=== PATIENT | male | born 1985 | race African-American/Black ===

== ENCOUNTER 2017-11-19 07:16 | Emergency (ER) | payer SELFPAY, OTHER ==
[2017-11-19] MEDS: cloNIDine HCL 0.1 MG TABLET PO (07:55)
[2017-11-19] MEDS: LISINOPRIL 10 MG TABLET PO (07:55)
== END 2017-11-19 09:05 | disposition home or self-care (01) ==
LOC: ER 07:16
DX: L03.114 Cellulitis of left upper limb (principal); I10 Essential (primary) hypertension
CPT/HCPCS: 99283

== ENCOUNTER 2018-05-31 20:04 | Emergency (ER) | payer SELFPAY ==
[~2018-05-31] VITALS: Ht 177.8 cm; Wt 124.7 kg
[~2018-05-31 20:04] MED LIST: CEPH-264 PO; LISI10TA2 PO; MUPI15CR TP; SULF1TAB24 PO
[2018-05-31 20:22] VITALS: BP 208/124
--- NOTE | 2018-05-31 20:32 | PHYS DOC ---
Past Medical History Past Medical History: Hypertension Past Surgical History: No Surgical History Alcohol Use: Occasionally Drug Use: None Adult General Chief Complaint Chief Complaint: FOREIGNBODY EAR HPI HPI Patient is a 33 year old male with history of hypertension who presents today complaining of a Q-tip cotton end stuck in his left ear, since this evening. Review of Systems Review of Systems Constitutional: Denies fever or chills [] HENT: Foreign body to the left ear. Denies nasal congestion or sore throat [] Musculoskeletal: Denies back pain or joint pain [] Integument: Denies rash or skin lesions [] Neurologic: Denies headache, focal weakness or sensory changes [] All other systems were reviewed and found to be within normal limits, except as documented in this note. Allergies Allergies Allergies Coded Allergies Type Severity Reaction Last Updated Verified No Known Drug Allergies 11/19/17 No Physical Exam Physical Exam Constitutional: Well developed, well nourished, no acute distress, non-toxic appearance. [] HENT: Normocephalic, atraumatic, bilateral external ears normal, oropharynx moist, no oral exudates, nose normal. [] Left ear canal noted for a white-appearing object suspicious of Q-tip cotton end Skin: Warm, dry, no erythema, no rash. [] Back: No tenderness, no CVA tenderness. [] Extremities: No tenderness, no cyanosis, no clubbing, ROM intact, no edema. [] Neurologic: Alert and oriented X 3, normal motor function, normal sensory function, no focal deficits noted. [] Psychologic: Affect normal, judgement normal, mood normal. [] Current Patient Data Vital Signs Vital Signs Date Time Temp Pulse Resp B/P (MAP) Pulse Ox O2 Delivery O2 Flow Rate FiO2 05/31/18 20:22 98.0 89 16 208/124 (152) 96 Room Air 98.0 EKG EKG [] Radiology/Procedures Radiology/Procedures [] Course & Med Decision Making Course & Med Decision Making Pertinent Labs and Imaging studies reviewed. (See chart for details) This is a 33-year-old male patient presenting to the ED today complaining of a Q -tip cotton end stuck in the left ear. Forceps were used to remove the cotton successfully. Patient was discharged with instructions to avoid using Q-tips to clean his ears. Blood pressure was elevated 2018/124. History of hypertension. He states he took his blood pressure medicines this morning he has no cardiac or neurological complaints. We will recheck his blood pressure prior to discharge. Instructed to follow-up with his own doctor on Sunday next week. Katie Disclaimer Katie Disclaimer This electronic medical record was generated, in whole or in part, using a voice recognition dictation system. Departure Departure Impression: Primary Impression: Foreign body of ear, left Additional Impression: Hypertension Disposition: HOME, SELF-CARE Condition: STABLE Referrals: NO PCP (PCP) Follow-up with your doctor in the course of next week Patient Instructions: Ear Foreign Body, [id number], Hypertension Additional Instructions: We removed a Q-tip end from your left ear canal. Please avoid putting anything smaller than your fingers in the ears. Your blood pressure was also high, ensure you are taking your medications and follow-up with your own doctor in the course of next week. Problem Qualifiers Primary Impression: Foreign body of ear, left Encounter type: initial encounter Qualified Codes: T16.2XXA - Foreign body in left ear, initial encounter Additional Impression: Hypertension Hypertension type: unspecified Qualified Codes: I10 - Essential (primary) hypertension JOHNNY MANUEL COSMETIC SURGEON May 31, 2018 20:32
== END 2018-05-31 20:36 | disposition home or self-care (01) ==
LOC: ER 20:04
DX: T16.2XXA Foreign body in left ear, initial encounter (principal); I10 Essential (primary) hypertension; X58.XXXA Exposure to other specified factors, initial encounter; Y93.89 Activity, other specified; Y92.89 Other specified places as the place of occurrence of the external cause; Y99.8 Other external cause status
CPT/HCPCS: 69200; 99284

== ENCOUNTER 2018-10-21 19:35 | Emergency (ER) | payer SELFPAY ==
[~2018-10-21] VITALS: Ht 177.8 cm; Wt 136.1 kg
[2018-10-21 19:40] VITALS: BP 209/139
--- NOTE | 2018-10-21 21:15 | PHYS DOC ---
Past Medical History Past Medical History: Hypertension Past Surgical History: No Surgical History Additional Information: non smoker Alcohol Use: Occasionally Drug Use: None Adult General Chief Complaint Chief Complaint: UPPER EXTREMITY PAIN HPI HPI Patient is a 33-year-old male who presents to the right shoulder pain does last for several weeks. He also states his right elbow started hurting today. He is tried ibuprofen 200 mg tablets this morning he states that is not helping. He rates his pain a 7 out of 10 states that it throbs and aches when he lifts his right shoulder. Review of Systems Review of Systems Constitutional: Denies fever or chills [] Eyes: Denies change in visual acuity, redness, or eye pain [] HENT: Denies nasal congestion or sore throat [] Respiratory: Denies cough or shortness of breath [] Cardiovascular: No additional information not addressed in HPI [] GI: Denies abdominal pain, nausea, vomiting, bloody stools or diarrhea [] : Denies dysuria or hematuria [] Musculoskeletal: Denies back pain but reports R shoulder and R elbow pain. Integument: Denies rash or skin lesions [] Neurologic: Denies headache, focal weakness or sensory changes [] Endocrine: Denies polyuria or polydipsia [] Complete System were reviewed and found to be within normal limits, except as documented in this note. Current Medications Current Medications Current Medications Medications (Trade) Dose Ordered Sig/Ruby Start Time Stop Time Status Last Admin Dose Admin Ketorolac Tromethamine (Toradol 30mg Vial) 30 mg 1X ONCE 10/21/18 21:45 10/21/18 21:46 DC 10/21/18 21:23 30 MG Allergies Allergies Allergies Coded Allergies Type Severity Reaction Last Updated Verified No Known Drug Allergies 11/19/17 No Physical Exam Physical Exam Constitutional: Well developed, well nourished, no acute distress, non-toxic appearance. [] HENT: Normocephalic, atraumatic, bilateral external ears normal, oropharynx moist, no oral exudates, nose normal. [] Eyes: PERRLA, EOMI, conjunctiva normal, no discharge. [] Neck: Normal range of motion, no tenderness, supple, no stridor. [] Cardiovascular:Heart rate regular rhythm, no murmur [] Lungs & Thorax: Bilateral breath sounds clear to auscultation [] Abdomen: Bowel sounds normal, soft, no tenderness, no masses, no pulsatile mas ses. [] Skin: Warm, dry, no erythema, no rash. [] Back: No tenderness, no CVA tenderness. [] Extremities: Tenderness R elbow, no cyanosis, no clubbing, ROM reduced R shoulder, no edema. [] Neurologic: Alert and oriented X 3, normal motor function, normal sensory function, no focal deficits noted. [] Psychologic: Affect normal, judgement normal, mood normal. [] Current Patient Data Vital Signs Vital Signs Date Time Temp Pulse Resp B/P (MAP) Pulse Ox O2 Delivery O2 Flow Rate FiO2 10/21/18 19:40 98.6 85 20 209/139 (162) 96 Room Air 98.6 EKG EKG [] Radiology/Procedures Radiology/Procedures Preliminary reads by Dr. Hawthorne XRAY of SHOULDER AND ELBOW: No acute fracture or dislocation.[] Course & Med Decision Making Course & Med Decision Making Pertinent Labs and Imaging studies reviewed. (See chart for details) Discussed with patient that I will order x-rays and Toradol. Patient is a greeable. XRAYS are negative. Will discharge patient home to follow up with orthopedics. Dragon Disclaimer Dragon Disclaimer This electronic medical record was generated, in whole or in part, using a voice recognition dictation system. Departure Departure Impression: Primary Impression: Shoulder pain, acute Additional Impression: Elbow pain, right Disposition: 01 HOME, SELF-CARE Condition: STABLE Referrals: NO PCP (PCP) LAVONNE DIXON II, MD Patient Instructions: Shoulder Pain, [id number] Additional Instructions: Follow up with orthopedics as needed. Use ibuprofen as needed for pain. Follow label instructions. Problem Qualifiers Primary Impression: Shoulder pain, acute Laterality: right Qualified Codes: M25.511 - Pain in right shoulder NARENDRA JAY MANAGER TREASURY October 21, 2018 21:15
--- NOTE | 2018-10-21 21:44 | RAD ---
EXAM: Right shoulder, 3 views; right elbow, 3 views. HISTORY: Pain. COMPARISON: None. FINDINGS: Right shoulder: 3 views of the right shoulder obtained. There is no fracture, dislocation or subluxation. Right elbow: 3 views of the right elbow are obtained. There is no fracture, dislocation or subluxation. There is no joint effusion. There is slight enthesopathy at the triceps insertion. IMPRESSION: No acute osseous finding. Electronically signed by: Gale Esparza MD (10/21/2018 9:41 PM) [facility]
[2018-10-21] MEDS ORDERED: KETOROLAC 30 MG/ML VIAL. IM ONE (21:45)
--- NOTE | 2018-10-23 08:54 | RAD ---
EXAM: Right shoulder, 3 views; right elbow, 3 views. HISTORY: Pain. COMPARISON: None. FINDINGS: Right shoulder: 3 views of the right shoulder obtained. There is no fracture, dislocation or subluxation. Right elbow: 3 views of the right elbow are obtained. There is no fracture, dislocation or subluxation. There is no joint effusion. There is slight enthesopathy at the triceps insertion. IMPRESSION: No acute osseous finding. Electronically signed by: Gale Esparza MD (10/21/2018 9:41 PM) [facility] DICTATED and SIGNED BY: GALE ESPARZA MD DATE: 10/21/18 2141 MTDD
== END 2018-10-21 23:20 | disposition home or self-care (01) ==
LOC: ER 19:35
DX: M25.511 Pain in right shoulder (principal); M25.521 Pain in right elbow; I10 Essential (primary) hypertension
CPT/HCPCS: 73030; 73080; 96372; 99284; J1885

== ENCOUNTER 2018-10-31 09:47 | Emergency (ER) | payer SELFPAY ==
[~2018-10-31] VITALS: Ht 177.8 cm; Wt 136.1 kg
[2018-10-31] MEDS ORDERED: cloNIDine HCL 0.1 MG TABLET PO ONE (11:00)
--- NOTE | 2018-10-31 11:08 | PHYS DOC ---
Past Medical History Past Medical History: Hypertension (JOHNNY MANUEL APRN) Past Surgical History: No Surgical History (JOHNNY MANUEL APRN) Alcohol Use: Occasionally Drug Use: None (JOHNNY MANUEL APRN) Adult General Chief Complaint Chief Complaint: SORE THROAT HPI HPI Patient is a 33 year old male with history of hypertension who presents to the ED today complaining of a sore throat for 2 days. Denies any fever coughing or congestion. (JOHNNY MANUEL APRN) Review of Systems Review of Systems Constitutional: Denies fever or chills [] Eyes: Denies change in visual acuity, redness, or eye pain [] HENT: Reports sore throat. Denies nasal congestion Respiratory: Denies cough or shortness of breath [] Cardiovascular: No additional information not addressed in HPI [] GI: Denies abdominal pain, nausea, vomiting, bloody stools or diarrhea [] : Denies dysuria or hematuria [] Musculoskeletal: Denies back pain or joint pain [] Integument: Denies rash or skin lesions [] Neurologic: Denies headache, focal weakness or sensory changes [] All other systems were reviewed and found to be within normal limits, except as documented in this note. (JOHNNY MANUEL APRN) Current Medications Current Medications Current Medications Medications (Trade) Dose Ordered Sig/Ruby Start Time Stop Time Status Last Admin Dose Admin Clonidine HCl (Catapres) 0.2 mg 1X ONCE 10/31/18 11:00 10/31/18 11:01 DC 10/31/18 10:45 0.2 MG (NARENDRA UGALDE DO) Allergies Allergies Allergies Coded Allergies Type Severity Reaction Last Updated Verified No Known Drug Allergies 11/19/17 No (NARENDRA UGALDE DO) Physical Exam Physical Exam Constitutional: Overweight patient. Well developed, well nourished, no acute distress, non-toxic appearance. [] HENT: Normocephalic, atraumatic, bilateral external ears normal, oropharynx moist, no oral exudates, nose normal. [] Eyes: PERRLA, EOMI, conjunctiva normal, no discharge. [] Neck: Normal range of motion, no tenderness, supple, no stridor. [] Cardiovascular:Heart rate regular rhythm, no murmur [] Lungs & Thorax: Bilateral breath sounds clear to auscultation [] Abdomen: Bowel sounds normal, soft, no tenderness, no masses, no pulsatile masses. [] Skin: Warm, dry, no erythema, no rash. [] Back: No tenderness, no CVA tenderness. [] Extremities: No tenderness, no cyanosis, no clubbing, ROM intact, no edema. [] Neurologic: Alert and oriented X 3, normal motor function, normal sensory func tion, no focal deficits noted. [] Psychologic: Affect normal, judgement normal, mood normal. [] (JOHNNY MANUEL APRN) Current Patient Data Vital Signs Vital Signs Date Time Temp Pulse Resp B/P (MAP) Pulse Ox O2 Delivery O2 Flow Rate FiO2 10/31/18 12:06 92 16 219/127 (157) 95 Room Air 10/31/18 09:50 98.3 98.3 (NARENDRA UGALDE DO) Lab Values Laboratory Tests Test 10/31/18 10:00 Group A Streptococcus Rapid Negative (NEGATIVE) (NARENDRA UGALDE DO) EKG EKG [] (JOHNNY MANUEL APRN) Radiology/Procedures Radiology/Procedures [] (JOHNNY MANUEL APRN) Course & Med Decision Making Course & Med Decision Making Pertinent Labs and Imaging studies reviewed. (See chart for details) This is a 33-year-old male patient presented to the ED today with sore throat for 2 days. Negative rapid strep. Blood pressure 226/145 with heart rate of 89. Has history of hypertension. He states he took his metoprolol this morning though he seemed not sure because he mentioned his metoprolol is 600 mg. He was given clonidine in the ED. We will recheck his blood pressure. Blood pressure right now to 208/132, patient has no cardiac or neurological symptoms. He states his blood pressure standing to be high when he comes to the hospital though this numbers were too high. We talked about admission versus discharge. He states he has a PCP and can follow-up as an outpatient. He states he will make sure he takes his medicines. (JOHNNY MANUEL APRN) Dragon Disclaimer Dragon Disclaimer This electronic medical record was generated, in whole or in part, using a voice recognition dictation system. (JOHNNY MANUEL APRN) Departure Departure Impression: Primary Impression: Accelerated hypertension Additional Impression: Acute viral pharyngitis Disposition: HOME, SELF-CARE Condition: STABLE Referrals: NO PCP (PCP) ASMITA MOYA MD follow up as soon as you can Patient Instructions: Hypertension, Viral Pharyngitis Additional Instructions: Please ensure you are taking your blood pressure medications. Your strep test is negative. Use saltwater gargles as needed for sore throat. We also gave you medications to help with your sore throat symptoms, take them as prescribed. You can also take Tylenol/Motrin as needed. Scripts Prednisone (PREDNISONE) 50 Mg Tablet 1 TAB PO DAILY, #5 TAB Prov: JOHNNY MANUEL APRN 10/31/18 Attending Signature Attending Signature I have reviewed the PA/CUSTOM HARVESTER's note and plan of care. I was available for consultation as needed during the patient's visit in the emergency department. I agree with the clinical impression, plan, and disposition. (NARENDRA UGALDE DO) Problem Qualifiers JOHNNY MANUEL APRN October 31, 2018 11:08 NARENDRA UGALDE DO November 01, 2018 13:09
[2018-10-31] MEDS ORDERED: PRED50TA PO (11:54)
[2018-10-31 12:06] VITALS: BP 219/127
== END 2018-10-31 12:06 | disposition home or self-care (01) ==
LOC: ER 09:47
DX: J02.8 Acute pharyngitis due to other specified organisms (principal); B97.89 Other viral agents as the cause of diseases classified elsewhere; I10 Essential (primary) hypertension; E66.3 Overweight; Z68.41 Body mass index [BMI] 40.0-44.9, adult
CPT/HCPCS: 87070; 87880; 99283

== ENCOUNTER 2020-07-26 13:33 | Inpatient (IN) | payer BC ==
[~2020-07-26] VITALS: Ht 177.8 cm; Wt 140.3 kg
[~2020-07-26 13:33] MED LIST changes: +LISI10TA16 PO; -LISI10TA2 PO; +PRED50TA PO
--- NOTE | 2020-07-26 13:41 | PHYS DOC ---
Past Medical History Past Medical History: Hypertension Past Surgical History: No Surgical History Smoking Status: Never Smoker Alcohol Use: Occasionally Drug Use: None General Adult EDM: Chief Complaint: HYPERGLYCEMIA HPI: HPI: Patient is a 35 year old male with history of diabetic, on Metformin, presented with Dr. Sierra last week due to increased thirst and generalized weakness. Patient was found to be extremely hyperglycemic with acute renal failure. Patient was advised to be admitted to hospital for IV fluid and IV insulin however he declined. Patient was put on insulin at home over the weekend but he continued to feel weak, he checked his blood sugar and it was really high, so he called his doctor who told him to come to ER for admission. Patient denies any abdominal pain no nausea vomiting, no chest pain, no cough or fever. Review of Systems: Review of Systems: Constitutional: Denies fever or chills. Positive for generalized weakness. Eyes: Denies change in visual acuity. [] HENT: Denies nasal congestion or sore throat. [] Respiratory: Denies cough or shortness of breath. [] Cardiovascular: Denies chest pain or edema. [] GI: Denies abdominal pain, nausea, vomiting, bloody stools or diarrhea. [] : Denies dysuria. [] Musculoskeletal: Denies back pain or joint pain. [] Integument: Denies rash. [] Neurologic: Denies headache, focal weakness or sensory changes. [] Endocrine: Denies polyuria or polydipsia. [] Lymphatic: Denies swollen glands. [] Psychiatric: Denies depression or anxiety. [] Heart Score: Risk Factors: Risk Factors: DM, Current or recent (<one month) smoker, HTN, HLP, family history of CAD, obesity. Risk Scores: Score 0 - 3: 2.5% MACE over next 6 weeks - Discharge Home Score 4 - 6: 20.3% MACE over next 6 weeks - Admit for Clinical Observation Score 7 - 10: 72.7% MACE over next 6 weeks - Early Invasive Strategies Current Medications: Current Medications Medications (Trade) Dose Ordered Sig/Ruby Start Time Stop Time Status Last Admin Dose Admin Sodium Chloride 1,000 ml @ 1,000 mls/hr 1X ONCE 07/26/20 13:45 07/26/20 14:44 UNV Allergies: Allergies: Allergies Coded Allergies Type Severity Reaction Last Updated Verified No Known Drug Allergies 11/19/17 No Physical Exam: PE: Constitutional: Well developed, well nourished, no acute distress, non-toxic appearance. [] HENT: Normocephalic, atraumatic, bilateral external ears normal, oropharynx mo ist, no oral exudates, nose normal. [] Eyes: PERRLA, EOMI, conjunctiva normal, no discharge. [] Neck: Normal range of motion, no tenderness, supple, no stridor. [] Cardiovascular:Heart rate regular rhythm, no murmur [] Lungs & Thorax: Bilateral breath sounds clear to auscultation [] Abdomen: Bowel sounds normal, soft, no tenderness, no masses, no pulsatile masses. [] Skin: Warm, dry, no erythema, no rash. [] Back: No tenderness, no CVA tenderness. [] Extremities: No tenderness, no cyanosis, no clubbing, ROM intact, no edema. [] Neurologic: Alert and oriented X 3, normal motor function, normal sensory function, no focal deficits noted. [] Psychologic: Affect normal, judgement normal, mood normal. [] Current Patient Data: Labs: Laboratory Tests Test 07/26/20 13:48 07/26/20 14:15 07/26/20 14:25 Urine Collection Type Unknown Urine Color Yellow Urine Clarity Clear Urine pH 5.5 Urine Specific [place] >=1.030 Urine Protein Negative mg/dL Urine Glucose (UA) >=1000 mg/dL Urine Ketones (Stick) Negative mg/dL Urine Blood Negative Urine Nitrite Negative Urine Bilirubin Negative Urine Urobilinogen Dipstick 0.2 mg/dL Urine Leukocyte Esterase Negative Urine RBC 0 /HPF Urine WBC 0 /HPF Urine Squamous Epithelial Cells Occ /LPF Urine Bacteria 0 /HPF White Blood Count 10.4 x10^3/uL Red Blood Count 5.33 x10^6/uL Hemoglobin 14.9 g/dL Hematocrit 45.7 % Mean Corpuscular Volume 86 fL Mean Corpuscular Hemoglobin 28 pg Mean Corpuscular Hemoglobin Concent 33 g/dL Red Cell Distribution Width 13.4 % Platelet Count 249 x10^3/uL Neutrophils (%) (Auto) 73 % Lymphocytes (%) (Auto) 18 % Monocytes (%) (Auto) 7 % Eosinophils (%) (Auto) 1 % Basophils (%) (Auto) 1 % Neutrophils # (Auto) 7.6 x10^3/uL Lymphocytes # (Auto) 1.8 x10^3/uL Monocytes # (Auto) 0.8 x10^3/uL Eosinophils # (Auto) 0.1 x10^3/uL Basophils # (Auto) 0.1 x10^3/uL Sodium Level 127 mmol/L Potassium Level 4.5 mmol/L Chloride Level 92 mmol/L Carbon Dioxide Level 29 mmol/L Anion Gap 6 Blood Urea Nitrogen 34 mg/dL Creatinine 2.4 mg/dL Estimated GFR (Cockcroft-Gault) 37.5 BUN/Creatinine Ratio 14 Glucose Level 904 mg/dL Calcium Level 9.3 mg/dL Magnesium Level 2.9 mg/dL Total Bilirubin 0.5 mg/dL Aspartate Amino Transf (AST/SGOT) 14 U/L Alanine Aminotransferase (ALT/SGPT) 37 U/L Alkaline Phosphatase 91 U/L Total Protein 8.1 g/dL Albumin 3.9 g/dL Albumin/Globulin Ratio 0.9 Acetone Level Neg O2 Saturation 92 % Arterial Blood pH 7.39 Arterial Blood pCO2 at Patient Temp 48 mmHg Arterial Blood pO2 at Patient Temp 65 mmHg Arterial Blood HCO3 28 mmol/L Arterial Blood Base Excess 2 mmol/L FiO2 21 Current Medications Medications (Trade) Dose Ordered Sig/Ruby Route PRN Reason Start Time Stop Time Status Last Admin Dose Admin Sodium Chloride 1,000 ml @ 1,000 mls/hr 1X ONCE IV 07/26/20 13:45 07/26/20 14:44 DC 07/26/20 14:16 Insulin Human Regular (HumuLIN R VIAL) 10 unit 1X ONCE IV 07/26/20 15:15 07/26/20 15:16 DC Sodium Chloride 1,000 ml @ 100 mls/hr Q10H IV 07/26/20 15:15 07/27/20 15:14 Insulin Human Regular 100 unit/ Sodium Chloride 101 ml @ 0 mls/hr CONT PRN IV SEE I/O RECORD 07/26/20 15:15 EKG: EKG: [] Radiology/Procedures: Radiology/Procedures: [] Course & Med Decision Making: Course & Med Decision Making Pertinent Labs and Imaging studies reviewed. (See chart for details) Patient is a 35-year-old male with history of diabetic, presented with hyperglycemia and acute renal failure. Patient will need to be admitted to hospital for IV fluid and IV insulin. Discussed with Dr. Itzel Castellanos who agrees admit the patient. Patient is not in DKA. Dragon Disclaimer: Katie Disclaimer: This electronic medical record was generated, in whole or in part, using a voice recognition dictation system. Departure Departure Impression: Primary Impression: Hyperglycemia Additional Impression: Acute renal failure Disposition: ADMITTED INPT THIS HOSP Admitting Physician: Vinay Castellanos Condition: STABLE Referrals: NO PCP (PCP) NEO ROCHA DO Jul 26, 2020 13:41
[2020-07-26] MEDS ORDERED: IV NORMAL SALINE 1000ML BAG 1,000 ML IV ONE (13:45)
[2020-07-26 14:02] LABS: BILIRUBIN,URINE NEGATIVE (NEG); CLARITY,URINE CLEAR; COLOR,URINE YELLOW; NITRITE,URINE NEGATIVE (NEG); PH,URINE 5.5 (<5.0-8.0); PROTEIN,URINE NEGATIVE (NEG-TRACE); UROBILINOGEN,URINE 0.2 mg/dL (0.2 mg/dL)
[2020-07-26 14:19] LABS: BACTERIA,URINE 0 /HPF (0-FEW); RBC,URINE 0 /HPF (0-2); WBC,URINE 0 /HPF (0-4)
[2020-07-26 14:24] LABS: BASO # 0.1 x10^3/uL (0.0-0.2); BASO % 1 % (0-3); EOS # 0.1 x10^3/uL (0.0-0.7); EOS % 1 % (0-3); HEMATOCRIT 45.7 % (39.0-53.0); HEMOGLOBIN 14.9 g/dL (13.0-17.5); LYMPH # 1.8 x10^3/uL (1.0-4.8); LYMPH % 18 % (24-48); MEAN CORPUSCULAR HEMOGLOBIN 28 pg (25-35); MEAN CORPUSCULAR HGB CONC 33 g/dL (31-37); MEAN CORPUSCULAR VOLUME 86 fL (79-100); MONO # 0.8 x10^3/uL (0.0-1.1); MONO % 7 % (0-9); NEUT # 7.6 x10^3/uL (1.8-7.7); NEUT % 73 % (31-73); PLATELET COUNT 249 x10^3/uL (140-400); RED BLOOD COUNT 5.33 x10^6/uL (4.30-5.70); RED CELL DISTRIBUTION WIDTH 13.4 % (11.5-14.5); WHITE BLOOD COUNT 10.4 x10^3/uL (4.0-11.0)
[2020-07-26 14:38] LABS: BASE EXCESS ABG 2 mmol/L (-3-3); HCO3 ABG 28 mmol/L (21-28); PCO2 ABG 48 mmHg (35-46); PO2 ABG 65 mmHg (85-108); SAT O2 ABG 92 % (92-99)
[2020-07-26 14:40] LABS: CALCIUM 9.3 mg/dL (8.5-10.1); CREATININE 2.4 mg/dL (0.7-1.3); GFR 37.5; POTASSIUM 4.5 mmol/L (3.5-5.1)
[2020-07-26 14:41] LABS: FIO2 ABG 21
[2020-07-26 14:51] LABS: ALBUMIN 3.9 g/dL (3.4-5.0); ALBUMIN/GLOBULIN RATIO 0.9 (1.0-1.7); MAGNESIUM 2.9 mg/dL (1.8-2.4); TOTAL BILIRUBIN 0.5 mg/dL (0.2-1.0); TOTAL PROTEIN 8.1 g/dL (6.4-8.2)
[2020-07-26] MEDS ORDERED: INSULIN REGULAR 100 UNIT/ML 3ML VIAL. IV ONE (15:15)
[2020-07-26] MEDS ORDERED: INSULIN,REGULAR 100 UNIT DRIP 100 ML IV ONE (15:45)
[2020-07-26] MEDS: INSULIN REGULAR VIAL 100 UNIT in IV NORMAL SALINE 100ML 100 ML IV PRN ×2 (15:49→22:28)
[2020-07-26] MEDS: IV NORMAL SALINE 1000ML BAG 1,000 ML IV SCH (15:50)
[2020-07-26 19:00] VITALS: BP 125/78
[2020-07-26] MEDS ORDERED: CARV3.1210 PO (19:50)
[2020-07-26] MEDS ORDERED: AMLO-187 PO (19:50)
[2020-07-26] MEDS ORDERED: HYDR-2145 PO (19:50)
[2020-07-26] MEDS ORDERED: METF500T16 PO (19:50)
[2020-07-26] MEDS ORDERED: LISI-130 PO (19:50)
[2020-07-26] MEDS ORDERED: amLODIPine BESYLATE 10 MG TABLET PO SCH (21:00)
[2020-07-26] MEDS ORDERED: LISINOPRIL 20 MG TABLET PO SCH (21:00)
[2020-07-26] MEDS: CARVEDILOL 3.125 MG TABLET. PO SCH (21:26)
[2020-07-26 22:51] VITALS: BP 122/74
[2020-07-27] MEDS: IV NORMAL SALINE 1000ML BAG 1,000 ML IV SCH ×3 (01:40→20:29)
[2020-07-27 02:56] VITALS: BP 98/59
[2020-07-27 07:00] VITALS: BP 123/62
[2020-07-27] MEDS ORDERED: metFORMIN 500 MG TABLET PO SCH (08:00)
[2020-07-27] MEDS: CARVEDILOL 3.125 MG TABLET. PO SCH ×2 (08:23→20:28)
[2020-07-27] MEDS ORDERED: hydroCHLOROthiazide 25 MG TABLET PO SCH (09:00)
[2020-07-27] MEDS ORDERED: DEXTROSE 50% 25 GM / 50ML DISP.SYRIN. IV PRN (09:00)
[2020-07-27] MEDS ORDERED: IV NORMAL SALINE 1000ML BAG 1,000 ML IV SCH (09:00)
--- NOTE | 2020-07-27 09:01 | PDOC ---
Provider Note Date of Service: DATE: 07/27/20 TIME: 08:58 Provider Note [id number] Justifications for Admission Other Justification ASMITA MOYA MD Jul 27, 2020 09:01
--- NOTE | 2020-07-27 09:11 | HP ---
ADMIT DATE: 07/27/2020 CHIEF COMPLAINT: High blood sugar. HISTORY OF PRESENT ILLNESS: A 35-year-old black male with known diabetes over the last several months, was seen in the office 3 days prior to admission and blood sugar was too high to register. Hemoglobin A1c had jumped from 7.6 in May to 11.7 and admission was advised with IV insulin, but he declined before the [place]. He came into the day of admission was willing to be admitted and has been on IV insulin drip overnight and feeling better with less nocturia and less fatigue. In the last few months, he has been drinking a lot of juice and some high sugar intake which he has changes in the last few days. No other specific complaints at this time. PAST HISTORY: He is hypertensive, he takes meds for this. ALLERGIES: He has no known allergies. He has had no previous admissions. His hemoglobin A1c in 05/2019 was 7.2 consistent with good control and he has been on metformin since then. FAMILY HISTORY: Positive for diabetes, obesity, hypertension and sleep apnea. SOCIAL HISTORY: He is a nonsmoker and nondrinker. He is single, physically active. FAMILY HISTORY: Unremarkable. OBJECTIVE: ENT: All within normal limits. NECK: No masses, nodes or bruits. LUNGS: Clear. CARDIOVASCULAR: Regular rate. No tachycardia. ABDOMEN: Obese, soft, benign and nontender. EXTREMITIES: Good pedal and radial pulses. SKIN: Turgor mildly decreased. NEUROLOGIC: Physiologic and nonfocal. ASSESSMENT: Severe hyperglycemia secondary to poorly controlled type 2 diabetes, it now appears to be insulin-dependent. He also has acute renal failure secondary to hyperglycemia and dehydration with mildly overtreated hypertension. PLAN: We will cut doses of amlodipine and lisinopril and hold the hydrochlorothiazide for now. Continue IV saline for kidney rehydration and fluid recovery and we will start him on Lantus and sliding scale insulin at this time and place of the IV insulin. He is currently requiring about 240-250 units in 24 hours of insulin, so he has a moderate degree of insulin resistance present. ASMITA MOYA MD DR: EDWIN/brennen JOB#: [id number] / [id number]
[2020-07-27 09:48] LABS: CALCIUM 8.7 mg/dL (8.5-10.1); CREATININE 2.2 mg/dL (0.7-1.3); GFR 41.4
[2020-07-27 09:54] LABS: POTASSIUM 2.8 mmol/L (3.5-5.1)
[2020-07-27] MEDS ORDERED: INSULIN GLARGINE SYRINGE. SQ SCH (10:00)
[2020-07-27 11:00] VITALS: BP 127/80
[2020-07-27] MEDS: INSULIN LISPRO 300 UNITS/3 ML VIAL. SQ SCH ×2 (11:46→17:22)
[2020-07-27] MEDS: POTASSIUM CHLORIDE 20 MEQ TABLET.ER. PO SCH ×2 (12:39→17:19)
[2020-07-27 15:00] VITALS: BP 119/78
[2020-07-27 19:20] VITALS: BP 128/79
[2020-07-27] MEDS: LISINOPRIL 20 MG TABLET PO SCH (20:28)
[2020-07-27] MEDS: amLODIPine BESYLATE 5 MG TABLET PO SCH (20:28)
[2020-07-27] MEDS ORDERED: INSULIN GLARGINE SYRINGE. SQ ONE (21:00)
[2020-07-27 23:17] VITALS: BP 118/71
[2020-07-28] VITALS (7 sets, daily range): BP systolic 79–159; BP diastolic 50–88
[2020-07-28 04:58] LABS: CALCIUM 8.5 mg/dL (8.5-10.1); GFR 46.2; POTASSIUM 3.4 mmol/L (3.5-5.1)
[2020-07-28] MEDS: CARVEDILOL 3.125 MG TABLET. PO SCH ×2 (08:50→21:56)
[2020-07-28] MEDS: IV NORMAL SALINE 1000ML BAG 1,000 ML IV SCH ×2 (08:50→17:35)
[2020-07-28] MEDS: POTASSIUM CHLORIDE 20 MEQ TABLET.ER. PO SCH ×3 (08:50→17:34)
[2020-07-28] MEDS: INSULIN LISPRO 300 UNITS/3 ML VIAL. SQ SCH ×3 (08:59→17:41)
[2020-07-28] MEDS: INSULIN GLARGINE SYRINGE. SQ SCH (09:00)
--- NOTE | 2020-07-28 09:14 | PDOC ---
Provider Note Date of Service: DATE: 07/28/20 TIME: 09:12 Provider Note feels ok, K+ up from 2.8 to 3.1- lantus was ordered 9am yesterday but not given until 9pm, larger dose started this am, will continue saline to suppport renal recovery, follow glucose here, likely dc 07/29 Justifications for Admission Other Justification ASMITA MOYA MD Jul 28, 2020 09:14
[2020-07-28] MEDS: amLODIPine BESYLATE 5 MG TABLET PO SCH (21:56)
[2020-07-28] MEDS: LISINOPRIL 20 MG TABLET PO SCH (21:57)
[2020-07-29 03:36] VITALS: BP 146/80
[2020-07-29] MEDS: IV NORMAL SALINE 1000ML BAG 1,000 ML IV SCH (05:00)
[2020-07-29 07:28] VITALS: BP 147/76
[2020-07-29] MEDS: POTASSIUM CHLORIDE 20 MEQ TABLET.ER. PO SCH ×2 (08:28→12:21)
[2020-07-29] MEDS: CARVEDILOL 3.125 MG TABLET. PO SCH (08:28)
[2020-07-29] MEDS: INSULIN GLARGINE SYRINGE. SQ SCH (08:31)
[2020-07-29] MEDS: INSULIN LISPRO 300 UNITS/3 ML VIAL. SQ SCH ×2 (08:32→12:22)
[2020-07-29] MEDS ORDERED: INSULIN GLARGINE SYRINGE. SQ SCH (09:00)
--- NOTE | 2020-07-29 09:21 | PDOC ---
Provider Note Date of Service: DATE: 07/29/20 TIME: 09:19 Provider Note [id number] Justifications for Admission Other Justification ASMITA MOYA MD Jul 29, 2020 09:21
[2020-07-29 09:39] LABS: CALCIUM 8.7 mg/dL (8.5-10.1); CREATININE 1.2 mg/dL (0.7-1.3); GFR 83.4; POTASSIUM 3.2 mmol/L (3.5-5.1)
[2020-07-29] MEDS ORDERED: INSULIN GLARGINE SYRINGE. SQ ONE (10:00)
[2020-07-29 11:03] VITALS: BP 153/81
--- NOTE | 2020-07-29 14:27 | DS ---
DATE OF DISCHARGE: 07/29/2020 HOSPITAL SUMMARY: A 35-year-old black male with recently diagnosed severe flare of type 2 diabetes, had been previously monitored and done well on metformin, but his last A1c is up around 12 and his blood sugars around 1000. He was started on Lantus at home, but did not respond to the lower dose. Chemistry profile on admission showed a sodium of 127, then went up to normal with blood sugar reduction, potassium 4.5, it went down to 2.8 with glucose and insulin and then came back up to 3.1. Creatinine was 2.4, GFR 40 on admission. Later, the creatinine dropped to 2.2, GFR 41, then creatinine 2.0 and GFR 46. Today's BMP is pending at this time. Acetone was negative. Blood gas showed normal pH. The urine showed high sugar, otherwise normal. He received IV insulin drip over the next 12 hours and Lantus was started and he took about 100 units a day prior to dismissal on the day of dismissal. He is comfortable to be followed as an outpatient at this time. FINAL DIAGNOSES: 1. Severe hyperglycemia without ketosis or acidosis secondary to uncontrolled type 2 diabetes. 2. Transient hypokalemia secondary to IV insulin, resolved. 3. Pseudohyponatremia, resolved. 4. Acute kidney injury, improving, secondary to severe hyperglycemia. OPERATIONS, PROCEDURES, COMPLICATIONS, CONSULTATIONS: None. DISPOSITION: He will take Lantus 100 units for now. He will hold his metformin until his next GFR to make sure his renal status is safe for that drug. Home blood pressure meds remain the same. No additional potassium will be needed and office followup with ____ in 4 days with his blood sugar monitor. Hopefully, we will be able to resume his metformin at that time as his diet has really improved and that drug will assist in reducing his insulin needs. May be able to transition to other oral medicines later on once better controlled and diet is established. ASMITA MOYA MD DR: EDWIN/brennen JOB#: [id number] / [id number]
== END 2020-07-29 13:35 | disposition home or self-care (01) | DRG 638 ==
LOC: ER 13:33 → ED HOLD 15:13 → 4 NORTH 19:15
PROVIDERS: ADMIT Family Medicine; ATTEND Family Medicine
DX: E11.65 Type 2 diabetes mellitus with hyperglycemia (principal); N17.9 Acute kidney failure, unspecified; Z68.41 Body mass index [BMI] 40.0-44.9, adult; E86.0 Dehydration; E87.6 Hypokalemia; I10 Essential (primary) hypertension; Z82.49 Family history of ischemic heart disease and other diseases of the circulatory system; Z83.3 Family history of diabetes mellitus
CPT/HCPCS: 36415; 36600; 80048; 80053; 81001; 82010; 82805; 82962; 83735; 85025; 96361; 96374; 99285; J1815; J7030; G0378